=== PATIENT | female | born 1985 | race Asian ===

== ENCOUNTER 2018-11-01 21:09 | Emergency (ER) | payer OTHER, MEDICAID ==
[~2018-11-01] VITALS: Ht 175.3 cm; Wt 108.0 kg
[2018-11-01 21:28] VITALS: Ht 175.3 cm; Wt 108.0 kg
[2018-11-02 00:45] LABS: BASOPHIL % 0.3 % (0-2); PLATELET COUNT 249 x10^3mcL (130-400)
[2018-11-02 00:47] LABS: RED CELL DISTRIBUTION WIDTH 14.9 % (11.5-14.5)
[2018-11-02 01:06] VITALS: BP 147/93
== END 2018-11-02 01:06 | disposition home or self-care (01) ==
LOC: ED 21:09
PROVIDERS: Emergency Medicine
DX: O20.0 Threatened abortion (principal); Z3A.16 16 weeks gestation of pregnancy
CPT/HCPCS: 36415